=== PATIENT | male | born 2000 | race Asian ===

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

== ENCOUNTER 2020-06-18 08:39 | Outpatient (CLI) | payer BC ==
[2020-06-18 10:20] LABS: BILIRUBIN,URINE NEGATIVE (NEGATIVE); BLOOD, URINE NEGATIVE Ery/uL (NEGATIVE); COLOR,URINE YELLOW (YELLOW); LEUKOCYTE ESTERASE ,URINE NEGATIVE (NEGATIVE); NITRITE, URINE NEGATIVE (NEGATIVE); PROTEIN,URINE NEGATIVE (NEGATIVE); UGLUCOSE NEGATIVE (NEGATIVE); UROBILINOGEN,URINE 0.2 EU/dL (0.2)
[2020-06-18 10:22] LABS: BASOPHILS % (AUTO) 0.6 % (0.0-2.0); EOSINOPHILS % (AUTO) 1.4 % (0.0-6.0); HEMATOCRIT 46 % (39-51); HEMOGLOBIN 15.5 g/dL (13.5-17.5); LYMPHOCYTES # (AUTO) 2.8 /CMM (0.8-4.8); LYMPHOCYTES % (AUTO) 35.2 % (20.0-44.0); MEAN CORPUSCULAR HGB CONC 34 g/dl (31.0-36.0); MEAN CORPUSCULAR VOLUME 86 fL (80-96); MONOCYTES # (AUTO) 0.7 /CMM (0.1-1.30); MONOCYTES % (AUTO) 8.3 % (2.0-12.0); NEUTROPHILS # (AUTO) 4.4 /CMM (1.8-8.9); NEUTROPHILS % (AUTO) 54.5 % (43.0-81.0); PLATELET COUNT (AUTO) 276 /CMM (150-450); RED BLOOD CELL COUNT(AUTO) 5.35 MIL/uL (4.5-6.0)
[2020-06-18 11:05] LABS: ALBUMIN 4.1 g/dL (3.4-5.0); BILIRUBIN,TOTAL 0.4 mg/dL (0.2-1.0); CALCIUM, SERUM 8.8 mg/dL (8.5-10.1); CREATININE 0.9 mg/dL (0.6-1.3); TOTAL PROTEIN, SERUM 7.7 g/dL (6.4-8.2)
[2020-06-18 11:23] LABS: THYROID STIMULATING HORMONE 2.537 uIU/mL (0.358-3.74); URIC ACID 7.3 mg/dL (2.6-7.2)
== END 2020-06-18 23:59 | disposition home or self-care (01) ==
LOC: LAB 08:39
PROVIDERS: ATTEND Legal Medicine
DX: I10 Essential (primary) hypertension (principal); E11.9 Type 2 diabetes mellitus without complications; E03.9 Hypothyroidism, unspecified; E55.9 Vitamin D deficiency, unspecified; M25.532 Pain in left wrist; R06.02 Shortness of breath; Z00.00 Encounter for general adult medical examination without abnormal findings
CPT/HCPCS: 36415; 71046; 73100-TC; 80053-TC; 80061-TC; 81000-TC; 82306; 82728-TC; 83540-TC; 84402; 84403; 84439-TC; 84443-TC; 84550-TC; 85025-TC

== ENCOUNTER 2020-10-05 08:05 | Emergency (ER) | payer SELFPAY ==
[~2020-10-05] VITALS: Ht 182.9 cm; Wt 106.1 kg
--- NOTE | 2020-10-05 08:05 | NUR ---
pt arrived via EMS-urine provided and sent to lab for testing
[2020-10-05] MEDS ORDERED: OLANZAPINE 5 MG TABLET ONE (08:53)
[2020-10-05] MEDS ORDERED: OLANZAPINE 5 MG TABLET PO ONE (09:00)
--- NOTE | 2020-10-05 09:00 | NUR ---
PATIENT IS HYPERVERBAL. CALM AND COOPERATIVE AT THIS TIME. COVID SWAB SENT TO LAB.
[2020-10-05 09:15] LABS: BILIRUBIN,URINE NEGATIVE (NEGATIVE); COLOR,URINE YELLOW (YELLOW); LEUKOCYTE ESTERASE ,URINE NEGATIVE (NEGATIVE); NITRITE, URINE NEGATIVE (NEGATIVE); PH,URINE 7.5 (5.0-8.0); PROTEIN,URINE NEGATIVE (NEGATIVE); UGLUCOSE NEGATIVE (NEGATIVE); UROBILINOGEN,URINE 0.2 EU/dL (0.2)
--- NOTE | 2020-10-05 09:24 | NUR ---
CONTRACTS ADVISOR AT BEDSIDE FOR BLOOD DRAW.
--- NOTE | 2020-10-05 09:42 | NUR ---
LAB CALLED PT COVID RESULT NEGATIVE, VLAD MCCAULEY INFORMED.
[2020-10-05 10:19] VITALS: BP 145/81
--- NOTE | 2020-10-05 10:19 | NUR ---
Patient discharged to home in stable condition. Written and verbal after care instructions given. Patient verbalizes understanding of instruction.
== END 2020-10-05 10:19 | disposition home or self-care (01) ==
LOC: ER 08:11
DX: F41.9 Anxiety disorder, unspecified (principal); F31.9 Bipolar disorder, unspecified; F20.9 Schizophrenia, unspecified
CPT/HCPCS: 80307; 81003; 87426; 99283; C9803

== ENCOUNTER 2021-10-25 08:31 | Outpatient (CLI) | payer BC ==
[2021-10-25 10:54] LABS: BASOPHILS % (AUTO) 0.6 % (0.0-2.0); EOSINOPHILS % (AUTO) 1.2 % (0.0-6.0); HEMATOCRIT 44 % (39-51); HEMOGLOBIN 14.8 g/dL (13.5-17.5); LYMPHOCYTES # (AUTO) 3.4 K/uL (0.8-4.8); LYMPHOCYTES % (AUTO) 41.5 % (20.0-44.0); MEAN CORPUSCULAR HGB CONC 33 g/dl (31.0-36.0); MEAN CORPUSCULAR VOLUME 83 fL (80-96); MONOCYTES # (AUTO) 0.7 K/uL (0.1-1.30); MONOCYTES % (AUTO) 9.2 % (2.0-12.0); NEUTROPHILS # (AUTO) 3.8 K/uL (1.8-8.9); NEUTROPHILS % (AUTO) 47.5 % (43.0-81.0); PLATELET COUNT (AUTO) 229 K/uL (150-450); RED BLOOD CELL COUNT(AUTO) 5.33 MIL/uL (4.5-6.0); WHITE BLOOD COUNT (AUTO) 8.1 K/uL (4.3-11.0)
[2021-10-25 10:58] LABS: BILIRUBIN,URINE NEGATIVE (NEGATIVE); COLOR,URINE YELLOW (YELLOW); LEUKOCYTE ESTERASE ,URINE NEGATIVE (NEGATIVE); NITRITE, URINE NEGATIVE (NEGATIVE); PROTEIN,URINE NEGATIVE (NEGATIVE); UGLUCOSE NEGATIVE (NEGATIVE); UROBILINOGEN,URINE 0.2 EU/dL (0.2)
[2021-10-25 11:49] LABS: FREE T4 (FREE THYROXINE) 0.92 ng/dL (0.76-1.46); THYROID STIMULATING HORMONE 5.454 uIU/mL (0.358-3.74); URIC ACID 7.1 mg/dL (2.6-7.2)
[2021-10-25 12:03] LABS: ALBUMIN 4.1 g/dL (3.4-5.0); BILIRUBIN,TOTAL 0.3 mg/dL (0.2-1.0); CALCIUM, SERUM 9.2 mg/dL (8.5-10.1); CREATININE 0.9 mg/dL (0.6-1.3); TOTAL PROTEIN, SERUM 7.6 g/dL (6.4-8.2)
== END 2021-10-25 23:59 | disposition home or self-care (01) ==
LOC: RAD 08:31
PROVIDERS: ATTEND Legal Medicine
DX: E11.9 Type 2 diabetes mellitus without complications (principal); E78.5 Hyperlipidemia, unspecified; E03.9 Hypothyroidism, unspecified; E55.9 Vitamin D deficiency, unspecified; R05.9 Cough, unspecified; Z00.00 Encounter for general adult medical examination without abnormal findings
CPT/HCPCS: 36415; 71046; 80053-TC; 80061-TC; 82607-TC; 83540-TC; 84402; 84403; 84439-TC; 84443-TC; 84550-TC; 85025-TC

== ENCOUNTER 2022-09-17 20:11 | Emergency (ER) | payer BC ==
[~2022-09-17] VITALS: Ht 180.3 cm; Wt 111.1 kg
--- NOTE | 2022-09-17 20:30 | NUR ---
39 FROM HOME FOR EPIGASTRIC PAIN X TODAY HX GERD. PT IS ALERT AND ORIENTED. RR EVEN AND NON LABORED. CONNECTED TO MONITOR
--- NOTE | 2022-09-17 21:25 | NUR ---
PT SEEN BY DR DERICK BO.
[2022-09-17] MEDS ORDERED: MAG HYDROX/AL HYDROX/SIMETH 30 ML UDC PO ONE (21:30)
[2022-09-17] MEDS ORDERED: LIDOCAINE VISCOUS 2% UD 15 ML UDC MM ONE (21:30)
[2022-09-17] MEDS ORDERED: MAG HYDROX/AL HYDROX/SIMETH 30 ML UDC ONE (21:32)
[2022-09-17] MEDS ORDERED: LIDOCAINE VISCOUS 2% UD 15 ML UDC ONE (21:32)
[2022-09-17 22:01] LABS: BASOPHILS % (AUTO) 0.2 % (0.0-2.0); EOSINOPHILS % (AUTO) 0.7 % (0.0-6.0); HEMATOCRIT 41 % (39-51); HEMOGLOBIN 13.6 g/dL (13.5-17.5); LYMPHOCYTES # (AUTO) 2.2 K/uL (0.8-4.8); LYMPHOCYTES % (AUTO) 18.1 % (20.0-44.0); MEAN CORPUSCULAR HGB CONC 33 g/dl (31.0-36.0); MEAN CORPUSCULAR VOLUME 83 fL (80-96); MONOCYTES # (AUTO) 0.8 K/uL (0.1-1.30); MONOCYTES % (AUTO) 6.4 % (2.0-12.0); NEUTROPHILS # (AUTO) 9.1 K/uL (1.8-8.9); NEUTROPHILS % (AUTO) 74.6 % (43.0-81.0); PLATELET COUNT (AUTO) 283 K/uL (150-450); RED BLOOD CELL COUNT(AUTO) 4.97 MIL/uL (4.5-6.0); WHITE BLOOD COUNT (AUTO) 12.1 K/uL (4.3-11.0)
[2022-09-17 22:23] LABS: ALBUMIN 3.5 g/dL (3.4-5.0); BILIRUBIN,DIRECT 0.1 mg/dL (0.0-0.2); BILIRUBIN,TOTAL 0.2 mg/dL (0.2-1.0); CALCIUM, SERUM 8.7 mg/dL (8.5-10.1); POTASSIUM 3.6 mmol/L (3.5-5.1); TOTAL PROTEIN, SERUM 6.9 g/dL (6.4-8.2)
[2022-09-17] MEDS ORDERED: OMEP20CA15 PO (23:16)
--- NOTE | 2022-09-17 23:38 | NUR ---
Patient discharged to home in stable condition. Written and verbal after care instructions given. Patient verbalizes understanding of instruction.
[2022-09-18 00:09] VITALS: BP 136/80
== END 2022-09-18 00:09 | disposition home or self-care (01) ==
LOC: ER 20:12
DX: K21.9 Gastro-esophageal reflux disease without esophagitis (principal); R10.13 Epigastric pain; E78.5 Hyperlipidemia, unspecified; F31.9 Bipolar disorder, unspecified; F41.9 Anxiety disorder, unspecified; F20.9 Schizophrenia, unspecified; Z88.8 Allergy status to other drugs, medicaments and biological substances
CPT/HCPCS: 36415; 71045-TC; 80048-TC; 80076-TC; 83690-TC; 85025-TC

== ENCOUNTER 2022-12-10 19:26 | Emergency (ER) | payer BC ==
[~2022-12-10] VITALS: Ht 180.3 cm; Wt 102.1 kg
[~2022-12-10 19:26] MED LIST: OMEP20CA15 PO
--- NOTE | 2022-12-10 19:55 | NUR ---
[id number] FROM HOME,SENT FOR BEHAVIORAL ISSUES HE WAS AGITATED AND HITTING OBJECT AT [employer], + PAIN BILATERAL HANDS. PT AAOX4, COOPERATIVE. IN NAD. PLACED COMFORTABLY IN BED, VITALS CHECKED.
[2022-12-10] MEDS ORDERED: LORAZEPAM INJ 2 MG/ML VIAL IM PRN (20:00)
[2022-12-10] MEDS ORDERED: OLANZAPINE 10 MG VIAL IM ONE ×2 (20:00→20:20)
--- NOTE | 2022-12-10 20:00 | NUR ---
URINE SPECIMEN SENT TO LAB
--- NOTE | 2022-12-10 20:00 | NUR ---
COVID SWAB DONE AND SENT TO LAB
[2022-12-10 20:16] LABS: BASOPHILS # (AUTO) 0.1 K/uL (0.0-0.2); BASOPHILS % (AUTO) 0.6 % (0.0-2.0); EOSINOPHILS % (AUTO) 0.9 % (0.0-6.0); HEMATOCRIT 49 % (39-51); LYMPHOCYTES # (AUTO) 2.8 K/uL (0.8-4.8); LYMPHOCYTES % (AUTO) 28.7 % (20.0-44.0); MEAN CORPUSCULAR HGB CONC 33 g/dl (31.0-36.0); MEAN CORPUSCULAR VOLUME 84 fL (80-96); MONOCYTES # (AUTO) 0.6 K/uL (0.1-1.30); MONOCYTES % (AUTO) 6.1 % (2.0-12.0); NEUTROPHILS # (AUTO) 6.2 K/uL (1.8-8.9); NEUTROPHILS % (AUTO) 63.7 % (43.0-81.0); PLATELET COUNT (AUTO) 361 K/uL (150-450); RED BLOOD CELL COUNT(AUTO) 5.84 MIL/uL (4.5-6.0); WHITE BLOOD COUNT (AUTO) 9.7 K/uL (4.3-11.0)
[2022-12-10] MEDS ORDERED: LORAZEPAM INJ 2 MG/ML VIAL ONE (20:20)
[2022-12-10 20:25] LABS: CALCIUM, SERUM 9.7 mg/dL (8.5-10.1); CARBON DIOXIDE 31 mmol/L (21-32); CHLORIDE 104 mmol/L (98-107); GLUCOSE 101 mg/dL (74-106); SODIUM SERUM 142 mmol/L (136-145); UREA NITROGEN, BLOOD 13 mg/dL (7-18)
[2022-12-10 20:32] LABS: ALANINE AMINOTRANSFERASE 35 U/L (12-78); ALBUMIN 4.5 g/dL (3.4-5.0); ALKALINE PHOSPHATASE 113 U/L (46-116); ASPARTATE AMINOTRANSFERASE 19 U/L (15-37); BILIRUBIN,DIRECT 0.1 mg/dL (0.0-0.2); BILIRUBIN,TOTAL 0.3 mg/dL (0.2-1.0); TOTAL PROTEIN, SERUM 8.2 g/dL (6.4-8.2)
[2022-12-10 20:33] LABS: ALCOHOL, BLOOD < 3 mg/dL (0-0)
[2022-12-10 20:52] LABS: BILIRUBIN,URINE NEGATIVE (NEGATIVE); COLOR,URINE YELLOW (YELLOW); LEUKOCYTE ESTERASE ,URINE NEGATIVE (NEGATIVE); NITRITE, URINE NEGATIVE (NEGATIVE); PROTEIN,URINE 1+ mg/dl (NEGATIVE); UGLUCOSE NEGATIVE (NEGATIVE)
[2022-12-10 21:09] LABS: BACTERIA,URINE None seen /HPF (None Seen); MUCUS,URINE Few /LPF (None Seen); RBC,URINE 0-2 /HPF (0-2); SQUAMOUS EPITHELIAL CELL,UR 0-2 /HPF (None Seen); WBC,URINE 0-2 /HPF (0-3)
--- NOTE | 2022-12-11 03:00 | NUR ---
Patient picked up by mother. Patient discharged to home in stable condition. Written and verbal after care instructions given. Patient verbalizes understanding of instruction.
[2022-12-11 03:56] VITALS: BP 129/88
== END 2022-12-11 03:58 | disposition home or self-care (01) ==
LOC: ER 19:27
DX: R46.1 Bizarre personal appearance (principal); K21.9 Gastro-esophageal reflux disease without esophagitis; Z88.8 Allergy status to other drugs, medicaments and biological substances; Z20.822 Contact with and (suspected) exposure to COVID-19
CPT/HCPCS: 99291; 96372 ×2; 85025; 80048; 80076; 81001; 36415; 87426; 80143; 80320; 80307; J2060; J3490; C9803; G0480

== ENCOUNTER 2022-12-27 23:58 | Emergency (ER) | payer BC ==
[~2022-12-27] VITALS: Ht 177.8 cm; Wt 104.3 kg
--- NOTE | 2022-12-28 00:19 | NUR ---
[id number] FR HOME FOR PSYCH EVAL STATES "OUT OF HIS MEDS, HEARING VOICES" DENIES SI/HI. PT A/OX4. TOLERATING R/A WELL WITH NO RESP DISTRESS. PT IN GOWN, BELONGINGS IN LOCKERS. WANDED BY SECURITY. SAFETY MEASURES IN PLACE.
[2022-12-28] MEDS ORDERED: TRAZODONE 50 MG TABLET ONE (00:28)
[2022-12-28] MEDS: TRAZODONE 50 MG TABLET PO ONE (00:31)
--- NOTE | 2022-12-28 00:48 | NUR ---
URINE COLLECTED AND SENT TO LAB
[2022-12-28 01:06] LABS: BASOPHILS # (AUTO) 0.1 K/uL (0.0-0.2); BASOPHILS % (AUTO) 0.6 % (0.0-2.0); EOSINOPHILS % (AUTO) 0.5 % (0.0-6.0); HEMATOCRIT 45 % (39-51); HEMOGLOBIN 14.8 g/dL (13.5-17.5); LYMPHOCYTES # (AUTO) 2.7 K/uL (0.8-4.8); LYMPHOCYTES % (AUTO) 22.2 % (20.0-44.0); MEAN CORPUSCULAR HGB CONC 33 g/dl (31.0-36.0); MEAN CORPUSCULAR VOLUME 83 fL (80-96); MONOCYTES # (AUTO) 0.7 K/uL (0.1-1.30); MONOCYTES % (AUTO) 5.6 % (2.0-12.0); NEUTROPHILS # (AUTO) 8.7 K/uL (1.8-8.9); NEUTROPHILS % (AUTO) 71.1 % (43.0-81.0); PLATELET COUNT (AUTO) 307 K/uL (150-450); RED BLOOD CELL COUNT(AUTO) 5.42 MIL/uL (4.5-6.0); WHITE BLOOD COUNT (AUTO) 12.2 K/uL (4.3-11.0)
[2022-12-28 01:25] LABS: BILIRUBIN,URINE NEGATIVE (NEGATIVE); COLOR,URINE DARK YELLOW (YELLOW); LEUKOCYTE ESTERASE ,URINE NEGATIVE (NEGATIVE); NITRITE, URINE NEGATIVE (NEGATIVE); PH,URINE 6.5 (5.0-8.0); PROTEIN,URINE 3+ mg/dl (NEGATIVE); UGLUCOSE NEGATIVE (NEGATIVE); UROBILINOGEN,URINE 0.2 EU/dL (0.2)
[2022-12-28 01:26] LABS: BACTERIA,URINE Rare /HPF (None Seen); RBC,URINE 0-2 /HPF (0-2); SQUAMOUS EPITHELIAL CELL,UR Few /HPF (None Seen); WBC,URINE 0-2 /HPF (0-3)
[2022-12-28 01:28] LABS: CALCIUM, SERUM 9.1 mg/dL (8.5-10.1); CARBON DIOXIDE 27 mmol/L (21-32); CHLORIDE 103 mmol/L (98-107); CREATININE 1.2 mg/dL (0.6-1.3); GLUCOSE 95 mg/dL (74-106); POTASSIUM 3.4 mmol/L (3.5-5.1); SODIUM SERUM 139 mmol/L (136-145); UREA NITROGEN, BLOOD 13 mg/dL (7-18)
[2022-12-28 01:34] LABS: ALANINE AMINOTRANSFERASE 46 U/L (12-78); ALBUMIN 4.3 g/dL (3.4-5.0); ALCOHOL, BLOOD < 3 mg/dL (0-0); ALKALINE PHOSPHATASE 97 U/L (46-116); ASPARTATE AMINOTRANSFERASE 22 U/L (15-37); BILIRUBIN,DIRECT 0.1 mg/dL (0.0-0.2); BILIRUBIN,TOTAL 0.4 mg/dL (0.2-1.0); TOTAL PROTEIN, SERUM 7.9 g/dL (6.4-8.2)
--- NOTE | 2022-12-28 02:27 | NUR ---
COVID ANTIGEN SWAB COLLECTED AND SENT TO LAB
--- NOTE | 2022-12-28 05:11 | NUR ---
CLINICALS FAXED TO [facility] AND [facility]
[2022-12-28] MEDS: LORAZEPAM INJ 2 MG/ML VIAL IM ONE (06:35)
[2022-12-28] MEDS: OLANZAPINE 10 MG VIAL IM ONE (06:36)
[2022-12-28] MEDS ORDERED: LORAZEPAM 1 MG TABLET ONE (08:19)
[2022-12-28] MEDS ORDERED: OLANZAPINE 5 MG TABLET ONE (08:19)
[2022-12-28] MEDS: OLANZAPINE 5 MG TABLET PO ONE (08:23)
[2022-12-28] MEDS: LORAZEPAM 1 MG TABLET PO ONE (08:24)
--- NOTE | 2022-12-28 08:24 | NUR ---
PT AT BEDSIDE, RESTLESS, HYPERVERBAL BUT FOLLOWS COMMAND AND DIRECTABLE. MEDICATED ORDERED. WILL CONTINUE TO MONITOR.
--- NOTE | 2022-12-28 09:55 | NUR ---
CALLED [facility] AT [facility] WAS NOTIFIED THAT THE PACKET FOR THE PT WAS REVIEVED AND THERE WILL BE DISCHARGES FROM [facility] LATER TODAY AND WILL RECIEVE A CALL BACK WITH ACCEPTANCE INFO
--- NOTE | 2022-12-28 10:43 | NUR ---
PT ACCEPTED TO [facility] UNDER THE CARE OF DR. LARSON NUMBER FOR REPORT IS [phone] AT 1330 ETA FOR TRANSPORT IS 1330
--- NOTE | 2022-12-28 10:53 | NUR ---
SLEEPING IN BED, EASILY AROUSABLE. WILL CONTINUE TO MONITOR.
[2022-12-28 13:17] VITALS: BP 136/88
--- NOTE | 2022-12-28 13:18 | NUR ---
TRANSPORTATION ARRIVED, PT TRANSPORTED TO [facility] IN STABLE CONDITION.
== END 2022-12-28 13:20 ==
LOC: ER 23:59
DX: R44.3 Hallucinations, unspecified (principal); F99 Mental disorder, not otherwise specified; K21.9 Gastro-esophageal reflux disease without esophagitis; F31.9 Bipolar disorder, unspecified; F41.9 Anxiety disorder, unspecified; Z88.8 Allergy status to other drugs, medicaments and biological substances; Z20.822 Contact with and (suspected) exposure to COVID-19
CPT/HCPCS: 99285; 85025; 80048; 80076; 81001; 36415; 87426; 80143; 80320; 80307; C9803; G0480

== ENCOUNTER 2023-05-09 20:09 | Emergency (ER) | payer BC, OTHER ==
[~2023-05-09] VITALS: Ht 180.3 cm; Wt 97.5 kg
[2023-05-09] MEDS ORDERED: IBUPROFEN 400 MG TABLET ONE (20:58)
[2023-05-09] MEDS ORDERED: TDAP [DIPH/PERTUSSIS/TET] 0.5 ML VIAL IM ONE ×2 (20:58→21:00)
[2023-05-09] MEDS ORDERED: IBUPROFEN 400 MG TABLET PO ONE (21:00)
[2023-05-09 21:56] VITALS: BP 141/89; TEMP 98.1; O2SAT 99
== END 2023-05-09 21:57 | disposition home or self-care (01) ==
LOC: ER 20:18
DX: S01.01XA Laceration without foreign body of scalp, initial encounter (principal); R51.9 Headache, unspecified; K21.9 Gastro-esophageal reflux disease without esophagitis; F31.9 Bipolar disorder, unspecified; F41.9 Anxiety disorder, unspecified; F20.9 Schizophrenia, unspecified; Z79.899 Other long term (current) drug therapy; W22.8XXA Striking against or struck by other objects, initial encounter; Y93.89 Activity, other specified; Y92.89 Other specified places as the place of occurrence of the external cause; Y99.8 Other external cause status
CPT/HCPCS: 70450-TC; 90715

== ENCOUNTER 2023-07-22 23:54 | Emergency (ER) | payer BC, OTHER ==
[~2023-07-22] VITALS: Ht 175.3 cm; Wt 90.7 kg
[2023-07-23 00:07] VITALS: BP 144/80; TEMP 98
[2023-07-23] MEDS ORDERED: LIDOCAINE/PRILOCAINE (5GM) 5 GM TUBE TP ONE ×2 (00:18→00:30)
[2023-07-23] MEDS ORDERED: AMOX-430 PO (00:20)
[2023-07-23 01:06] VITALS: O2SAT 98
== END 2023-07-23 03:17 | disposition home or self-care (01) ==
LOC: ER 23:56
DX: S61.432A Puncture wound without foreign body of left hand, initial encounter (principal); K21.9 Gastro-esophageal reflux disease without esophagitis; F31.9 Bipolar disorder, unspecified; F41.9 Anxiety disorder, unspecified; F17.200 Nicotine dependence, unspecified, uncomplicated; Z79.899 Other long term (current) drug therapy; Z88.1 Allergy status to other antibiotic agents; W55.01XA Bitten by cat, initial encounter; Y93.89 Activity, other specified; Y92.89 Other specified places as the place of occurrence of the external cause; Y99.8 Other external cause status

== ENCOUNTER 2025-07-10 10:25 | Outpatient (CLI) | payer BC, OTHER ==
[~2025-07-10 10:25] MED LIST changes: +AMOX-430 PO
[2025-07-10] MEDS ORDERED: LIDOCAINE HCL/MPF 1% 30 ML VIAL IJ ONE (10:50)
[2025-07-10] MEDS ORDERED: BACI/NEOM/POLY B OINT PKT 1 UDPKT PACKET ONE (11:09)
== END 2025-07-10 23:59 | disposition home or self-care (01) ==
LOC: WOU 10:25
PROVIDERS: ATTEND Podiatrist Foot & Ankle Surgery
DX: L60.0 Ingrowing nail (principal); L03.031 Cellulitis of right toe; M79.674 Pain in right toe(s)
CPT/HCPCS: 11730; J3490